=== PATIENT | female | born 1955 | race Caucasian/White ===

== ENCOUNTER → 2017-07-07 | Day surgery (SDC) | payer BC, OTHER ==
[~2017-07-07] MED LIST: Dextrose 5%-0.45% NaCl 1,000 ML IV SCH; Midazolam 1 MG/ML 2 ML SDV IV ONE; Midazolam 1 MG/ML 2 ML SDV ONE; Sodium Chloride 0.9% 10 ML Syringe FLUSH PRN; fentaNYL 100 MCG/2 ML SDV IV ONE; fentaNYL 100 MCG/2 ML SDV ONE
--- NOTE | 2017-07-07 18:20 | OR ---
DATE: 07/07/2017 PROCEDURE: Esophagogastroduodenoscopy and multiple pinch biopsies. INSTRUMENT USED: GIF-H180 Olympus video panendoscope. PREMEDICATIONS: No oral topical anesthesia used. Fentanyl 100 mcg intravenous, Versed 2 mg intravenous. Nasal O2 cannula. The procedure was done under pulse oximetry, BP recording, and questioned documents examiner. INDICATION: The patient on a long-term aspirin as well as PPI with persistent nausea and dyspepsia, unexplained. DESCRIPTION OF PROCEDURE: Esophagogastroduodenoscopy is performed for detection of any active erosive lesions. Garcia esophagus and/or malignancy also under consideration. H. pylori status to be determined, endoscopic hemostasis therapy if needed. The scope was passed with ease. Adequate visualization of the esophagus was made from proximal to distal areas. No upper esophageal lesions identified. No distal esophageal stricture. No uphill or downhill esophageal varices. No Gisel-Simental tear. No evidence of erosive esophagitis by Kegley criteria. No esophageal polyp or tumor mass identified. Z-line was seen at around 40 cm distal to the oral verge, configuration consistent with grade 1 by Zapp classification. No proximal gastric varices noted. Gastric fundus examination by retroflexion showed no malignant lesions. Diminutive multiple gastric fundus polyps were noted. No gastric ulcer, malignant mass, or vascular ectasia identified. Duodenal bulb showed no ulcer. Visualized second part of the duodenum was unremarkable. Multiple pinch biopsies were taken from the gastric antrum and proximal body and sent for PyloriTek test for H. pylori, and if negative in an hour, tissues to be sent for histopathology. No bleeding was noted from any of the visualized areas at the completion of examination. Photographs were taken of the duodenal bulb, gastric antrum, fundus, and distal esophagus. Scattered gastric antral erosions were noted without bleeding from them. IMPRESSION: 1. Diminutive gastric fundus polyp. 2. Gastric antral erosions. The patient tolerated the procedure well. [facility] /[id number]
== END ==
LOC: DL.ENDO 06:53
PROVIDERS: ATTEND Internal Medicine Gastroenterology
DX: Z12.11 Encounter for screening for malignant neoplasm of colon (principal); E66.09 Other obesity due to excess calories; I10 Essential (primary) hypertension; E11.9 Type 2 diabetes mellitus without complications; J45.909 Unspecified asthma, uncomplicated; E78.5 Hyperlipidemia, unspecified; K25.9 Gastric ulcer, unspecified as acute or chronic, without hemorrhage or perforation; K29.50 Unspecified chronic gastritis without bleeding; K63.5 Polyp of colon; Z88.1 Allergy status to other antibiotic agents; Z90.89 Acquired absence of other organs; Z98.890 Other specified postprocedural states; Z90.49 Acquired absence of other specified parts of digestive tract; Z88.8 Allergy status to other drugs, medicaments and biological substances
CPT/HCPCS: 43239; 87077; J2250; J3010; J7042

== ENCOUNTER 2020-07-02 14:45 | Emergency (ER) | payer MEDICARE, OTHER ==
[2020-07-02 15:03] VITALS: BP 159/68; PULSE 95
--- NOTE | 2020-07-02 16:33 | EDM.PDOC ---
Scribed by Mahi Forde 07/02/20 0006 for Emily Vazquez NP ED HPI GENERAL MEDICAL PROBLEM - General Chief Complaint: ENT Problem Stated Complaint: SINUS PROBLEMS ASTHMA Time Seen by Provider: 07/02/20 16:16 Source of Information: Reports: Patient, RN, RN Notes Reviewed History Limitations: Reports: No Limitations - History of Present Illness INITIAL COMMENTS - FREE TEXT/NARRATIVE: Patient is a 65-year-old female who presents to the ER with complaint of sinus infection and exacerbation of asthma. Her symptoms began on Thursday. She has a headache, face pain, cough--tickle/itch in right side, shortness of breath, fever, chills and diarrhea. No chest pain, nausea or vomiting. She was last tested in April at that time. No history of COVID unknown exposure. Onset: Gradual Duration: Getting Worse Location: Reports: Chest Quality: Reports: Ache Severity: Moderate Improves with: Reports: None Worsens with: Reports: None Associated Symptoms: Reports: No Other Symptoms Nose Pain Score (Numeric/FACES): 6 - Related Data Allergies Allergy/AdvReac Type Severity Reaction Status Date / Time clarithromycin [From Biaxin] Allergy Rash Verified 07/02/20 15:03 diltiazem HCl [From Cardizem] Allergy Rash Verified 07/02/20 15:03 fluticasone propionate Allergy Rash Verified 07/02/20 15:03 [From Advair Diskus] salmeterol xinafoate Allergy Rash Verified 07/02/20 15:03 [From Advair Diskus] Home Meds: Home Meds Cetirizine HCl [Zyrtec] 10 mg PO BEDTIME 05/26/15 [History] Hydrochlorothiazide 12.5 mg PO DAILY 05/26/15 [History] Losartan [Cozaar] 50 mg PO DAILY 05/26/15 [History] Montelukast [Singulair] 10 mg PO BEDTIME 05/26/15 [History] Pantoprazole [Protonix] 40 mg PO BID 05/26/15 [History] metFORMIN [Glucophage XR] 500 mg PO BID 05/26/15 [History] Albuterol Sulfate [Proair Hfa] 1 - 2 puff INH ASDIRECTED 07/06/17 [History] Flaxseed Oil [Flax Oil] 1,000 mg PO BID 07/06/17 [History] Lutein/Minerals/Vit A,C & E [I-Nguyễn] 1 tab PO DAILY 07/06/17 [History] Potassium Chloride 20 meq PO DAILY 07/06/17 [History] Simvastatin [Zocor] 20 mg PO DAILY 07/06/17 [History] Calcium Phosphate Trib/Vit D3 [Calcium-Vitamin D3 Gummies] 1 tab PO DAILY 06/22/18 [History] Magnesium Oxide 250 mg PO DAILY 06/22/18 [History] Past Medical History HEENT History: Reports: Impaired Vision Other HEENT History: wears glasses Cardiovascular History: Reports: Heart Murmur, High Cholesterol, Hypertension Respiratory History: Reports: Asthma Gastrointestinal History: Reports: Chronic Diarrhea, GERD Other Genitourinary History: Hematuria [employer] History: Reports: None Musculoskeletal History: Reports: Other (See Below) Other Musculoskeletal History: recurring left shoulder pain Neurological History: Reports: None Psychiatric History: Reports: None Endocrine/Metabolic History: Reports: Diabetes, Type II, Obesity/BMI 30+, Osteopenia Hematologic History: Reports: None Immunologic History: Reports: None Oncologic (Cancer) History: Reports: None Dermatologic History: Reports: None - Infectious Disease History Infectious Disease History: Reports: Chicken Pox, Measles - Past Surgical History Head Surgeries/Procedures: Reports: None HEENT Surgical History: Reports: Naso-Sinus Surgery, Tonsillectomy Other HEENT Surgeries/Procedures: Privious sinus surg Cardiovascular Surgical History: Reports: None Respiratory Surgical History: Reports: None GI Surgical History: Reports: Cholecystectomy, Colonoscopy, EGD Female Surgical History: Reports: None Endocrine Surgical History: Reports: None Neurological Surgical History: Reports: None Musculoskeletal Surgical History: Reports: None, Carpal Tunnel, Other (See Below) Other Musculoskeletal Surgeries/Procedures:: CARPAL TUNNEL RIGHT Oncologic Surgical History: Reports: None Dermatological Surgical History: Reports: None Social & Family History - Family History Family Medical History: No Pertinent Family History HEENT: Reports: Macular Degeneration Cardiac: Reports: Bypass, High Cholesterol, Hypertension, [place], Stent Respiratory: Reports: COPD GI: Reports: Diverticulitis : Reports: Pyelonephritis OBGYN: Reports: Neurological: Reports: None Psychiatric: Reports: None Endocrine/Metabolic: Reports: Diabetes, type II Hematologic: Reports: None Immunologic: Reports: None Dermatologic: Reports: None Oncologic: Reports: Breast, Other (See Below) Other Oncologic Family History: THROAT - Tobacco Use Tobacco Use Status *Q: Never Tobacco User Second Hand Smoke Exposure: No - Caffeine Use Caffeine Use: Reports: Coffee, Soda - Recreational Drug Use Recreational Drug Use: No - Living Situation & Occupation Living situation: Reports: , with Spouse Occupation: Unemployed ED ROS ENT - Review of Systems Review Of Systems: Comprehensive ROS is negative, except as noted in HPI. ED EXAM, ENT - Physical Exam Exam: See Below Exam Limited By: No Limitations General Appearance: Alert, WD/WN, No Apparent Distress Eye Exam: Bilateral Eye: EOMI, Normal Inspection, PERRL Ears: Normal External Exam, Normal Canal, Hearing Grossly Normal, Normal TMs Nose: Normal Inspection Mouth/Throat: Normal Inspection Head: Facial Tenderness (frontal and maxillary) Neck: Normal Inspection, Supple, Non-Tender, Full Range of Motion Respiratory/Chest: No Respiratory Distress, Lungs Clear, Normal Breath Sounds, No Accessory Muscle Use, Chest Non-Tender GI/Abdominal: Normal Bowel Sounds, Soft, Non-Tender, No Organomegaly, No Distention, No Abnormal Bruit, No Mass (Female) Exam: Deferred Rectal (Female) Exam: Deferred Back: Normal Inspection, Full Range of Motion Extremities: Normal Inspection, Normal Range of Motion, Non-Tender, No Pedal Edema, Normal Capillary Refill Neurological: Alert, Oriented, CN II-XII Intact, Normal Cognition, Normal Gait, Normal Reflexes, No Motor/Sensory Deficits Psychiatric: Normal Affect, Normal Mood Skin: Warm, Dry, Intact, Normal Color, No Rash Lymphatic: No Adenopathy Course - Vital Signs Last Recorded V/S: Last Vital Signs Temp 99.2 F 07/02/20 14:57 Pulse 95 07/02/20 14:57 Resp 18 07/02/20 14:57 BP 159/68 H 07/02/20 14:57 Pulse Ox 97 07/02/20 14:57 Departure - Departure Time of Disposition: 16:27 Disposition: Home, Self-Care 01 Condition: Good Clinical Impression: Sinusitis Qualifiers: Sinusitis location: unspecified location Chronicity: acute Recurrence: not specified as recurrent Qualified Code(s): J01.90 - Acute sinusitis, unspecified - Discharge Information *PRESCRIPTION DRUG MONITORING PROGRAM REVIEWED*: No *COPY OF PRESCRIPTION DRUG MONITORING REPORT IN PATIENT CLAY: No Instructions: COVID-19 Frequently Asked Questions, Antibiotic Medicine, Adult, [id number], Sinusitis, Adult, [id number], COVID-19: How to Protect Yourself and Others - CDC, Prevent the Spread of COVID-19 if You Are Sick - CDC, Probiotics Forms: ED Department Discharge Additional Instructions: You will be contacted with the results of your Covid testing Isolate/quarantine until you have these results and are given further instruction Rx: Prednisone, Augmentin May use Tylenol and/or ibuprofen as directed or tolerated for fever/pain Follow-up with your primary care provider if no improvement in the clinic Sepsis Event Note (ED) - Evaluation Sepsis Screening Result: Possible Sepsis Risk - Focused Exam Vital Signs: Vital Signs Temp Pulse Resp BP Pulse Ox 07/02/20 14:57 99.2 F 95 18 159/68 H 97 I have read and agree with the documentation that has been completed regarding this visit. By signing this record, I attest that the documentation was completed in my physical presence and is an accurate record of the encounter.
== END 2020-07-02 16:41 | disposition home or self-care (01) ==
LOC: DL.ED 14:45
DX: J01.90 Acute sinusitis, unspecified (principal); E11.9 Type 2 diabetes mellitus without complications; E66.9 Obesity, unspecified; K21.9 Gastro-esophageal reflux disease without esophagitis; I10 Essential (primary) hypertension; E78.00 Pure hypercholesterolemia, unspecified; J45.909 Unspecified asthma, uncomplicated; Z68.35 Body mass index [BMI] 35.0-35.9, adult; Z79.84 Long term (current) use of oral hypoglycemic drugs; Z88.1 Allergy status to other antibiotic agents; Z88.8 Allergy status to other drugs, medicaments and biological substances; Z90.49 Acquired absence of other specified parts of digestive tract; Z79.899 Other long term (current) drug therapy
CPT/HCPCS: 99283; U0002

== ENCOUNTER 2020-07-05 16:20 | Emergency (ER) | payer MEDICARE, OTHER ==
[2020-07-05] MEDS ORDERED: Albuterol/Ipratropium 3.0-0.5 MG/3 ML Neb Soln INH ONE (16:21)
[2020-07-05 16:41] VITALS: BP 117/59; PULSE 84
--- NOTE | 2020-07-05 17:54 | EDM.PDOC ---
<Barrera Lee Mary - Last Filed: 07/05/20 18:48> ED HPI GENERAL MEDICAL PROBLEM - General Chief Complaint: General Stated Complaint: COVID + CANT BREATH Time Seen by Provider: 07/05/20 17:40 Source of Information: Reports: Patient History Limitations: Reports: No Limitations - History of Present Illness INITIAL COMMENTS - FREE TEXT/NARRATIVE: This 65 yo female patient reports to the ED due to increased shortness of breath with a positive COVID test on 07/02/20. The patient reports she has been having a cough which increases her shortness of breath. The patient has a history of asthma, has been using her inhaler, but continues to have a cough with shortness of breath. The patient is currently on Augmentin and Prednisone, but reports she is not getting better. The patient reports she called her primary care facility and was advised to come to the ED for assessment and treatment. Duration: Day(s):, Constant Location: Reports: Chest (right sided) Quality: Reports: Ache, Dull Severity: Moderate Improves with: Reports: None Worsens with: Reports: Other (cough) Context: Reports: Other Associated Symptoms: Reports: Chest Pain (right sided), Shortness of Breath Generalized Pain Score (Numeric/FACES): 5 - Related Data Allergies Allergy/AdvReac Type Severity Reaction Status Date / Time clarithromycin [From Biaxin] Allergy Rash Verified 07/05/20 16:36 diltiazem HCl [From Cardizem] Allergy Rash Verified 07/05/20 16:36 fluticasone propionate Allergy Rash Verified 07/05/20 16:36 [From Advair Diskus] salmeterol xinafoate Allergy Rash Verified 07/05/20 16:36 [From Advair Diskus] Home Meds: Home Meds Cetirizine HCl [Zyrtec] 10 mg PO BEDTIME 05/26/15 [History] Hydrochlorothiazide 12.5 mg PO DAILY 05/26/15 [History] Losartan [Cozaar] 50 mg PO DAILY 05/26/15 [History] Montelukast [Singulair] 10 mg PO BEDTIME 05/26/15 [History] Pantoprazole [Protonix] 40 mg PO BID 05/26/15 [History] metFORMIN [Glucophage XR] 500 mg PO BID 05/26/15 [History] Albuterol Sulfate [Proair Hfa] 1 - 2 puff INH ASDIRECTED 07/06/17 [History] Flaxseed Oil [Flax Oil] 1,000 mg PO BID 07/06/17 [History] Lutein/Minerals/Vit A,C & E [I-Nguyễn] 1 tab PO DAILY 07/06/17 [History] Potassium Chloride 20 meq PO DAILY 07/06/17 [History] Simvastatin [Zocor] 20 mg PO DAILY 07/06/17 [History] Calcium Phosphate Trib/Vit D3 [Calcium-Vitamin D3 Gummies] 1 tab PO DAILY 06/22/18 [History] Magnesium Oxide 250 mg PO DAILY 06/22/18 [History] Past Medical History HEENT History: Reports: Impaired Vision Other HEENT History: wears glasses Cardiovascular History: Reports: Heart Murmur, High Cholesterol, Hypertension Respiratory History: Reports: Asthma Gastrointestinal History: Reports: Chronic Diarrhea, GERD Genitourinary History: Reports: Other (See Below) Other Genitourinary History: Hematuria [employer] History: Reports: None Musculoskeletal History: Reports: Other (See Below) Other Musculoskeletal History: recurring left shoulder pain Neurological History: Reports: None Psychiatric History: Reports: None Endocrine/Metabolic History: Reports: Diabetes, Type II, Obesity/BMI 30+, Osteopenia Hematologic History: Reports: None Immunologic History: Reports: None Oncologic (Cancer) History: Reports: None Dermatologic History: Reports: None - Infectious Disease History Infectious Disease History: Reports: Chicken Pox, Measles - Past Surgical History Head Surgeries/Procedures: Reports: None HEENT Surgical History: Reports: Naso-Sinus Surgery, Tonsillectomy Other HEENT Surgeries/Procedures: Privious sinus surg Cardiovascular Surgical History: Reports: None Respiratory Surgical History: Reports: None GI Surgical History: Reports: Cholecystectomy, Colonoscopy, EGD Female Surgical History: Reports: None Endocrine Surgical History: Reports: None Neurological Surgical History: Reports: None Musculoskeletal Surgical History: Reports: None, Carpal Tunnel, Other (See Below) Other Musculoskeletal Surgeries/Procedures:: CARPAL TUNNEL RIGHT Oncologic Surgical History: Reports: None Dermatological Surgical History: Reports: None Social & Family History - Family History Family Medical History: No Pertinent Family History HEENT: Reports: Macular Degeneration Cardiac: Reports: Bypass, High Cholesterol, Hypertension, [place], Stent Respiratory: Reports: COPD GI: Reports: Diverticulitis : Reports: Pyelonephritis OBGYN: Reports: Neurological: Reports: None Psychiatric: Reports: None Endocrine/Metabolic: Reports: Diabetes, type II Hematologic: Reports: None Immunologic: Reports: None Dermatologic: Reports: None Oncologic: Reports: Breast, Other (See Below) Other Oncologic Family History: THROAT - Caffeine Use Caffeine Use: Reports: None - Recreational Drug Use Recreational Drug Use: No - Living Situation & Occupation Living situation: Reports: , with Spouse Occupation: Unemployed ED ROS GENERAL - Review of Systems Review Of Systems: Comprehensive ROS is negative, except as noted in HPI. ED EXAM, GENERAL - Physical Exam Exam: See Below Exam Limited By: No Limitations General Appearance: Alert, WD/WN, Moderate Distress Eye Exam: Bilateral Eye: EOMI, Normal Inspection, PERRL Ears: Normal External Exam, Normal Canal, Hearing Grossly Normal, Normal TMs Nose: Normal Inspection, Normal Mucosa, No Blood Throat/Mouth: Normal Inspection, Normal Lips, Normal Teeth, Normal Gums, Normal Oropharynx, Normal Voice, No Airway Compromise Head: Atraumatic, Normocephalic Neck: Normal Inspection, Supple, Non-Tender, Full Range of Motion Respiratory/Chest: Decreased Breath Sounds, Rhonchi (diffuse) Cardiovascular: Normal Peripheral Pulses, Regular Rate, Rhythm, No Edema, No Gallop, No JVD, No Murmur, No Rub GI/Abdominal: Normal Bowel Sounds, Soft, Non-Tender, No Organomegaly, No Distention, No Abnormal Bruit, No Mass (Female) Exam: Deferred Rectal (Female) Exam: Deferred Back Exam: Normal Inspection, Full Range of Motion, NT Extremities: Normal Inspection, Normal Range of Motion, Non-Tender, Normal Capillary Refill, No Pedal Edema Neurological: Alert, Oriented, CN II-XII Intact, Normal Cognition, Normal Gait, Normal Reflexes, No Motor/Sensory Deficits Psychiatric: Normal Affect, Normal Mood Skin Exam: Warm, Dry, Intact, Normal Color, No Rash Lymphatic: No Adenopathy Departure - Departure Disposition: Home, Self-Care 01 Clinical Impression: Acute bronchitis due to COVID-19 virus - Discharge Information Instructions: COVID-19 Frequently Asked Questions Forms: ED Department Discharge Additional Instructions: 1) don't sleep flat at night 2) use humidifier in bedroom 3) drink lots of liquids 4) take tylenl or motrin for discomfort 5) follow up at clinic rx given; nahun pearle 100mg bid prn cough x 12 duoneb tid prn x 1 box Sepsis Event Note (ED) - Evaluation Sepsis Screening Result: No Definite Risk <Chuck Hernandez - Last Filed: 07/05/20 19:39> Course - Vital Signs Last Recorded V/S: Last Vital Signs Temp 35.6 C L 07/05/20 16:37 Pulse 84 07/05/20 16:37 Resp 18 07/05/20 16:37 BP 117/59 L 07/05/20 16:37 Pulse Ox 98 07/05/20 16:37 - Orders/Labs/Meds Labs: Laboratory Tests 07/05/20 07/05/20 07/05/20 Range/Units 18:33 18:33 18:33 WBC 7.4 (5.0-10.0) 10^3/uL RBC 4.62 (4.2-5.4) 10^6/uL Hgb 13.0 (12.0-16.0) g/dL Hct 40.3 (37.0-47.0) % MCV 87.2 (80-100) fL MCH 28.1 (27.0-34.0) pg MCHC 32.3 L (33.0-35.0) g/dL Plt Count 194 (150-450) 10^3/uL Neut % (Auto) 86.0 H (42.2-75.2) % Lymph % (Auto) 7.7 L (20.5-50.1) % [place] % (Auto) 5.9 (2-8) % Eos % (Auto) 0.1 L (1.0-3.0) % Baso % (Auto) 0.3 (0.0-1.0) % D-Dimer, Quantitative < 100 (0-400) ng/mL Sodium 134 L (136-145) mmol/L Potassium 3.9 (3.5-5.1) mmol/L Chloride 98 (98-107) mmol/L Carbon Dioxide 28 (21-32) mmol/L Anion Gap 11.9 (7-13) mEq/L BUN 14 (7-18) mg/dL Creatinine 1.10 H (0.55-1.02) mg/dL Est Cr Clr Drug Dosing 37.45 mL/min Estimated GFR (MDRD) 50 BUN/Creatinine Ratio 12.7 (No establ ref range) Glucose 194 H (74-99) mg/dL Calcium 9.4 (8.5-10.1) mg/dL Total Bilirubin 0.3 (0.2-1.0) mg/dL AST 25 (15-37) U/L ALT 41 (14-59) U/L Alkaline Phosphatase 58 (46-116) U/L Total Protein 7.9 (6.4-8.2) g/dL Albumin 3.8 (3.4-5.0) g/dL Globulin 4.1 Albumin/Globulin Ratio 0.9 Meds: Medications Discontinued Medications Generic Name Dose Route Start Last Admin Trade Name Freq PRN Reason Stop Dose Admin Benzonatate 100 mg 07/05/20 19:32 Tessalon Perles PO 07/05/20 19:33 ONETIME ONE - Re-Assessments/Exams Free Text/Narrative Re-Assessment/Exam: 07/05/20 19:36 results discussed with pt. Departure - Departure Time of Disposition: 19:37 Condition: Good Sepsis Event Note (ED) - Focused Exam Vital Signs: Vital Signs Temp Pulse Resp BP Pulse Ox 07/05/20 16:37 35.6 C L 84 18 117/59 L 98
[2020-07-05 19:05] LABS: ANION GAP 11.9 mEq/L (7-13)
[2020-07-05] MEDS ORDERED: Benzonatate 100 MG Cap PO ONE (19:32)
[2020-07-05] MEDS ORDERED: Albuterol/Ipratropium 3.0-0.5 MG/3 ML Neb Soln ONE (19:36)
== END 2020-07-05 19:45 | disposition home or self-care (01) ==
LOC: DL.ED 16:20
DX: U07.1 COVID-19 (principal); J20.9 Acute bronchitis, unspecified; E78.00 Pure hypercholesterolemia, unspecified; I10 Essential (primary) hypertension; K21.9 Gastro-esophageal reflux disease without esophagitis; E11.9 Type 2 diabetes mellitus without complications; E66.9 Obesity, unspecified; Z68.34 Body mass index [BMI] 34.0-34.9, adult; Z88.1 Allergy status to other antibiotic agents; Z88.8 Allergy status to other drugs, medicaments and biological substances; Z79.84 Long term (current) use of oral hypoglycemic drugs; Z79.899 Other long term (current) drug therapy
CPT/HCPCS: 36415; 80053; 85025; 85379; 99283; A9270-GY; J7620-GY

== ENCOUNTER 2020-07-10 22:48 | Inpatient (IN) | payer MEDICARE, OTHER ==
[2020-07-11 00:59] LABS: CHLORIDE,CL 97 mmol/L (98-107); SODIUM,NA 135 mmol/L (136-145)
[2020-07-11] MEDS ORDERED: Dexamethasone 4 MG/ML SDV IVPUSH ONE (01:19)
--- NOTE | 2020-07-11 01:58 | CT ---
PROCEDURE INFORMATION: Exam: CT Chest Without Contrast; Diagnostic Exam date and time: 07/11/2020 1:00 AM Age: 65 years old Clinical indication: Other: Covid +; Additional info: Covid + TECHNIQUE: Imaging protocol: Diagnostic computed tomography of the chest without contrast. Radiation optimization: All CT scans at this facility use at least one of these dose optimization techniques: automated exposure control; mA and/or kV adjustment per patient size (includes targeted exams where dose is matched to clinical indication); or iterative reconstruction. COMPARISON: No relevant prior studies available. FINDINGS: Lungs: Extensive bilateral patchy areas of ground-glass opacification.Commonly reported imaging features of COVID-19 pneumonia are present. Other processes such as influenza pneumonia and organizing pneumonia, as can be seen with drug toxicity and connective tissue disease, can cause a similar imaging pattern. (Reference: Joe) Pleural space: Unremarkable. No pneumothorax. No pleural effusion. Heart: Unremarkable. No cardiomegaly. No pericardial effusion. Aorta: Unremarkable. No aortic aneurysm. Lymph nodes: Unremarkable. No enlarged lymph nodes. Gallbladder and bile ducts: The patient is status post cholecystectomy. Bones/joints: Unremarkable. No acute fracture. Soft tissues: Unremarkable. IMPRESSION: Extensive bilateral patchy areas of consolidation, consistent with COVID-19 pneumonia. REFERENCES: Joe Morin et al., [employer] Society [place] Expert Consensus Statement on Reporting Chest CT Findings Related to COVID-19. Endorsed by the Society of [employer] Radiology, the [place] [employer], and RSNA. Published October 12, 2019.
[2020-07-11] MEDS ORDERED: Ondansetron 4 MG/2 ML SDV IVPUSH PRN (03:48)
--- NOTE | 2020-07-11 03:56 | PCM.HP ---
H&P History of Present Illness - General Date of Service: 07/11/20 Admit Problem/Dx: Admission Diagnosis/Problem Admission Diagnosis/Problem Bilateral pneumonia Source of Information: Patient - History of Present Illness Initial Comments - Free Text/Narative: Is a 65-year-old female with medical history of hypertension, diabetes mellitus, gastroesophageal reflux disease. The patient presented to the emergency room with complaint of shortness of breath. She was diagnosed with Covid on 07/02/2020. She has continued to cough and the shortness of breath is getting worse. At presentation she was hypoxic saturation down to 70%. She was placed on supplemental oxygen 4 L/min. CT scan of the chest showed findings consistent with Covid pneumonia - Related Data Allergies/Adverse Reactions: Allergies Allergy/AdvReac Type Severity Reaction Status Date / Time clarithromycin [From Biaxin] Allergy Rash Verified 07/05/20 16:36 diltiazem HCl [From Cardizem] Allergy Rash Verified 07/05/20 16:36 fluticasone propionate Allergy Rash Verified 07/05/20 16:36 [From Advair Diskus] salmeterol xinafoate Allergy Rash Verified 07/05/20 16:36 [From Advair Diskus] Home Medications: Home Meds Cetirizine HCl [Zyrtec] 10 mg PO BEDTIME 05/26/15 [History] Hydrochlorothiazide 12.5 mg PO DAILY 05/26/15 [History] Losartan [Cozaar] 50 mg PO DAILY 05/26/15 [History] Montelukast [Singulair] 10 mg PO BEDTIME 05/26/15 [History] Pantoprazole [Protonix] 40 mg PO BID 05/26/15 [History] metFORMIN [Glucophage XR] 500 mg PO BID 05/26/15 [History] Albuterol Sulfate [Proair Hfa] 1 - 2 puff INH ASDIRECTED 07/06/17 [History] Flaxseed Oil [Flax Oil] 1,000 mg PO BID 07/06/17 [History] Lutein/Minerals/Vit A,C & E [I-Nguyễn] 1 tab PO DAILY 07/06/17 [History] Potassium Chloride 20 meq PO DAILY 07/06/17 [History] Simvastatin [Zocor] 20 mg PO DAILY 07/06/17 [History] Calcium Phosphate Trib/Vit D3 [Calcium-Vitamin D3 Gummies] 1 tab PO DAILY 06/22/18 [History] Magnesium Oxide 250 mg PO DAILY 06/22/18 [History] Past Medical History HEENT History: Reports: Impaired Vision Other HEENT History: wears glasses Cardiovascular History: Reports: Heart Murmur, High Cholesterol, Hypertension Respiratory History: Reports: Asthma Gastrointestinal History: Reports: Chronic Diarrhea, GERD Genitourinary History: Reports: Other (See Below) Other Genitourinary History: Hematuria STRIPER History: Reports: None Musculoskeletal History: Reports: Other (See Below) Other Musculoskeletal History: recurring left shoulder pain Neurological History: Reports: None Psychiatric History: Reports: None Endocrine/Metabolic History: Reports: Diabetes, Type II, Obesity/BMI 30+, Osteopenia Hematologic History: Reports: None Immunologic History: Reports: None Oncologic (Cancer) History: Reports: None Dermatologic History: Reports: None - Infectious Disease History Infectious Disease History: Reports: Chicken Pox, Measles - Past Surgical History Head Surgeries/Procedures: Reports: None HEENT Surgical History: Reports: Naso-Sinus Surgery, Tonsillectomy Other HEENT Surgeries/Procedures: Privious sinus surg Cardiovascular Surgical History: Reports: None Respiratory Surgical History: Reports: None GI Surgical History: Reports: Cholecystectomy, Colonoscopy, EGD Female Surgical History: Reports: None Endocrine Surgical History: Reports: None Neurological Surgical History: Reports: None Musculoskeletal Surgical History: Reports: None, Carpal Tunnel, Other (See Below) Other Musculoskeletal Surgeries/Procedures:: CARPAL TUNNEL RIGHT Oncologic Surgical History: Reports: None Dermatological Surgical History: Reports: None Social & Family History - Family History Family Medical History: No Pertinent Family History HEENT: Reports: Macular Degeneration Cardiac: Reports: Bypass, High Cholesterol, Hypertension, [place], Stent Respiratory: Reports: COPD GI: Reports: Diverticulitis : Reports: Pyelonephritis OBGYN: Reports: Neurological: Reports: None Psychiatric: Reports: None Endocrine/Metabolic: Reports: Diabetes, type II Hematologic: Reports: None Immunologic: Reports: None Dermatologic: Reports: None Oncologic: Reports: Breast, Other (See Below) Other Oncologic Family History: THROAT - Caffeine Use Caffeine Use: Reports: None - Living Situation & Occupation Living situation: Reports: , with Spouse Occupation: Unemployed H&P Review of Systems - Review of Systems: Review Of Systems: See Below General: Reports: Chills, Malaise, Fatigue Pulmonary: Reports: Shortness of Breath, Cough, Sputum Cardiovascular: Reports: No Symptoms Gastrointestinal: Reports: Abdominal Pain, Diarrhea, Nausea Musculoskeletal: Reports: No Symptoms Exam - Exam Exam: See Below - Vital Signs Vital Signs: Last Vital Signs Temp 37.0 C 07/11/20 03:05 Pulse 105 H 07/11/20 03:05 Resp 22 H 07/11/20 03:05 BP 121/95 H 07/11/20 03:05 Pulse Ox 97 07/11/20 03:05 Weight: 81.221 kg - Exam Quality Assessment: Supplemental Oxygen General: Alert, Oriented Neck: Supple, Trachea Midline, 2 Lungs: Decreased Breath Sounds Cardiovascular: Regular Rate, Regular Rhythm GI/Abdominal Exam: Normal Bowel Sounds, Soft, Non-Tender, No Organomegaly, No Distention, No Abnormal Bruit, No Mass, Pelvis Stable Extremities: Normal Inspection, Normal Range of Motion, Non-Tender, No Pedal E adrian, Normal Capillary Refill - Patient Data Lab Results Last 24 hrs: Laboratory Results - last 24 hr 07/11/20 07/11/20 07/11/20 Range/Units 00:30 00:30 00:30 WBC 7.7 (5.0-10.0) 10^3/uL RBC 4.16 L (4.2-5.4) 10^6/uL Hgb 11.8 L (12.0-16.0) g/dL Hct 35.6 L (37.0-47.0) % MCV 85.6 (80-100) fL MCH 28.4 (27.0-34.0) pg MCHC 33.1 (33.0-35.0) g/dL Plt Count 197 (150-450) 10^3/uL Neut % (Auto) 81.3 H (42.2-75.2) % Lymph % (Auto) 11.4 L (20.5-50.1) % [place] % (Auto) 7.1 (2-8) % Eos % (Auto) 0.1 L (1.0-3.0) % Baso % (Auto) 0.1 (0.0-1.0) % D-Dimer, Quantitative 521 H (0-400) ng/mL Sodium 135 L (136-145) mmol/L Potassium 3.0 L (3.5-5.1) mmol/L Chloride 97 L (98-107) mmol/L Carbon Dioxide 32 (21-32) mmol/L Anion Gap 9.0 (7-13) mEq/L BUN 13 (7-18) mg/dL Creatinine 0.93 (0.55-1.02) mg/dL Est Cr Clr Drug Dosing TNP Estimated GFR (MDRD) > 60 BUN/Creatinine Ratio 14.0 (No establ ref range) Glucose 112 H (74-99) mg/dL Lactic Acid (0.4-2.0) mmol/L Calcium 8.3 L (8.5-10.1) mg/dL Total Bilirubin 0.4 (0.2-1.0) mg/dL AST 32 (15-37) U/L ALT 24 (14-59) U/L Alkaline Phosphatase 44 L (46-116) U/L Troponin I < 0.017 (0.000-0.056) ng/mL Total Protein 6.9 (6.4-8.2) g/dL Albumin 2.7 L (3.4-5.0) g/dL Globulin 4.2 Albumin/Globulin Ratio 0.64 Amylase 33 (25-115) U/L Lipase 109 (73-393) U/L 12/23/20 Range/Units 00:30 WBC (5.0-10.0) 10^3/uL RBC (4.2-5.4) 10^6/uL Hgb (12.0-16.0) g/dL Hct (37.0-47.0) % MCV (80-100) fL MCH (27.0-34.0) pg MCHC (33.0-35.0) g/dL Plt Count (150-450) 10^3/uL Neut % (Auto) (42.2-75.2) % Lymph % (Auto) (20.5-50.1) % [place] % (Auto) (2-8) % Eos % (Auto) (1.0-3.0) % Baso % (Auto) (0.0-1.0) % D-Dimer, Quantitative (0-400) ng/mL Sodium (136-145) mmol/L Potassium (3.5-5.1) mmol/L Chloride (98-107) mmol/L Carbon Dioxide (21-32) mmol/L Anion Gap (7-13) mEq/L BUN (7-18) mg/dL Creatinine (0.55-1.02) mg/dL Est Cr Clr Drug Dosing Estimated GFR (MDRD) BUN/Creatinine Ratio (No establ ref range) Glucose (74-99) mg/dL Lactic Acid 0.8 (0.4-2.0) mmol/L Calcium (8.5-10.1) mg/dL Total Bilirubin (0.2-1.0) mg/dL AST (15-37) U/L ALT (14-59) U/L Alkaline Phosphatase (46-116) U/L Troponin I (0.000-0.056) ng/mL Total Protein (6.4-8.2) g/dL Albumin (3.4-5.0) g/dL Globulin Albumin/Globulin Ratio Amylase (25-115) U/L Lipase (73-393) U/L Result Diagrams: 07/11/20 00:30 07/11/20 00:30 [place] Results Last 24 hrs: Microbiology 07/11/20 00:30 Anaerobic Blood Culture - Final Blood - Arm, Left Problem List Initiated/Reviewed/Updated: Yes Orders Last 24hrs: Active Orders 24 hr Category Date Time Status Admission Diagnosis [ADT] Routine ADT 07/11/20 02:18 Ordered Admission Status [Patient Status] [ADT] Routine ADT 07/11/20 02:18 Active Patient Status [ADT] Routine ADT 07/11/20 03:48 Ordered Cardiac Monitoring [RC] CONTINUOUS Care 07/11/20 03:50 Ordered Intake and Output [RC] QSHIFT Care 07/11/20 03:50 Ordered Oxygen Therapy [RC] PRN Care 07/11/20 03:48 Ordered Up ad Leeann [RC] ASDIRECTED Care 07/11/20 03:48 Ordered VTE/DVT Education [RC] PER UNIT ROUTINE Care 07/11/20 03:48 Ordered Vital Signs [RC] Q4H Care 07/11/20 03:48 Ordered Regular Diet [DIET] Diet 07/11/20 Breakfast Ordered BASIC METABOLIC PANEL,BMP [CHEM] AM Lab 07/11/20 05:11 Ordered CULTURE BLOOD [BC] Stat Lab 07/11/20 00:30 Results HEPATIC FUNCTION PANEL,HFP [CHEM] AM Lab 07/11/20 05:11 Ordered TROPONIN I [CHEM] AM Lab 07/11/20 05:11 Ordered Acetaminophen [TylenoL] Med 07/11/20 03:48 Ordered 650 mg PO Q4H PRN Enoxaparin [Lovenox] Med 07/11/20 09:00 Ordered 30 mg SUBCUT Q12HR Ondansetron [Zofran] Med 07/11/20 03:48 Ordered 4 mg IVPUSH Q6H PRN Sodium Chloride 0.9% [Normal Saline] 1,000 ml Med 07/11/20 04:00 Ordered IV ASDIRECTED dexAMETHasone [Decadron] Med 07/12/20 04:00 Ordered 6 mg IVPUSH Q24H Blood Culture x2 Reflex Set [OM.PC] Stat Oth 07/11/20 02:29 Ordered Resuscitation Status Routine Resus Stat 07/11/20 03:48 Ordered Assessment/Plan Comment:: Assessment/plan: #. COVID-[address] scan demonstrated bilateral pulmonary infiltrate #. Acute hypoxemic respiratory failure Secondary to COVID-19 pneumonia #. Diabetes mellitus type 2 On oral hypoglycemic agents #. Hypokalemia Serum potassium is down to 3.0 Likely due to hydrochlorothiazide #. Hypertension On hydrochlorothiazide and losartan Plan: Admit patient to medical floor Start patient on dexamethasone Patient is outside the window for intravenous remdesivir Also outside window for intravenous convalescent plasma Start patient on Lovenox Monitor blood sugar before meals and at bedtime Consistent carbohydrate diet Replace potassium deficit.
[2020-07-11] MEDS: Sodium Chloride 0.9% 1,000 ML IV SCH ×2 (04:40→17:57)
[2020-07-11] MEDS ORDERED: Potassium Chloride 20 MEQ in Premix Bag 1 BAG IV ONE (04:58)
[2020-07-11 06:50] LABS: ANION GAP 13.7 mEq/L (7-13); CHLORIDE,CL 97 mmol/L (98-107); SODIUM,NA 136 mmol/L (136-145)
[2020-07-11] MEDS: Enoxaparin 30 MG/0.3 ML Syringe SUBCUT SCH ×2 (09:12→20:57)
--- NOTE | 2020-07-11 11:36 | PCM.PN ---
- General Info Date of Service: 07/11/20 Admission Dx/Problem (Free Text): Admission Diagnosis/Problem Admission Diagnosis/Problem Bilateral pneumonia Subjective Update: Pt was seen in room doing well, No nausea or Vomiting and she is still on supplemental oxygen, her appetite is good Functional Status: Reports: Pain Controlled, Tolerating Diet, Ambulating, Urinating - Review of Systems General: Reports: Weakness, Appetite (accptable). Denies: Fever, Chills HEENT: Denies: Headaches, Sinus Congestion, Sore Throat Pulmonary: Reports: Shortness of Breath, Cough. Denies: Sputum, Wheezing Cardiovascular: Denies: Chest Pain, Dyspnea on Exertion, Lightheadedness Gastrointestinal: Denies: Abdominal Pain, Difficulty Swallowing, Nausea, Vomiting Genitourinary: Denies: Dysuria, Frequency, Flank Pain Musculoskeletal: Denies: Neck Pain, Shoulder Pain, Leg Pain Skin: Denies: Cyanosis, Bruising, Pruritis, Rash Neurological: Reports: Weakness. Denies: Confusion, Tingling, Tremors, Difficulty Walking Psychiatric: Denies: Confusion, Anxiety, Agitation - Patient Data Vitals - Most Recent: Last Vital Signs Temp 37.1 C 07/11/20 08:00 Pulse 73 07/11/20 08:00 Resp 18 07/11/20 08:00 BP 104/60 07/11/20 08:00 Pulse Ox 95 07/11/20 08:00 Weight - Most Recent: 81.221 kg I&O - Last 24 Hours: Intake & Output 07/10/20 07/11/20 07/11/20 22:59 06:59 14:59 Intake Total 200 Output Total 100 Balance -100 200 Lab Results Last 24 Hours: Laboratory Results - last 24 hr 07/11/20 07/11/20 07/11/20 Range/Units 00:30 00:30 00:30 WBC 7.7 (5.0-10.0) 10^3/uL RBC 4.16 L (4.2-5.4) 10^6/uL Hgb 11.8 L (12.0-16.0) g/dL Hct 35.6 L (37.0-47.0) % MCV 85.6 (80-100) fL MCH 28.4 (27.0-34.0) pg MCHC 33.1 (33.0-35.0) g/dL Plt Count 197 (150-450) 10^3/uL Neut % (Auto) 81.3 H (42.2-75.2) % Lymph % (Auto) 11.4 L (20.5-50.1) % [place] % (Auto) 7.1 (2-8) % Eos % (Auto) 0.1 L (1.0-3.0) % Baso % (Auto) 0.1 (0.0-1.0) % D-Dimer, Quantitative 521 H (0-400) ng/mL Sodium 135 L (136-145) mmol/L Potassium 3.0 L (3.5-5.1) mmol/L Chloride 97 L (98-107) mmol/L Carbon Dioxide 32 (21-32) mmol/L Anion Gap 9.0 (7-13) mEq/L BUN 13 (7-18) mg/dL Creatinine 0.93 (0.55-1.02) mg/dL Est Cr Clr Drug Dosing TNP Estimated GFR (MDRD) > 60 BUN/Creatinine Ratio 14.0 (No establ ref range) Glucose 112 H (74-99) mg/dL POC Glucose (70-105) mg/dl Lactic Acid (0.4-2.0) mmol/L Calcium 8.3 L (8.5-10.1) mg/dL Total Bilirubin 0.4 (0.2-1.0) mg/dL Direct Bilirubin (0.0-0.2) mg/dL Indirect Bilirubin AST 32 (15-37) U/L ALT 24 (14-59) U/L Alkaline Phosphatase 44 L (46-116) U/L Troponin I < 0.017 (0.000-0.056) ng/mL Total Protein 6.9 (6.4-8.2) g/dL Albumin 2.7 L (3.4-5.0) g/dL Globulin 4.2 Albumin/Globulin Ratio 0.64 Amylase 33 (25-115) U/L Lipase 109 (73-393) U/L 07/11/20 07/11/20 07/11/20 Range/Units 00:30 06:15 07:38 WBC (5.0-10.0) 10^3/uL RBC (4.2-5.4) 10^6/uL Hgb (12.0-16.0) g/dL Hct (37.0-47.0) % MCV (80-100) fL MCH (27.0-34.0) pg MCHC (33.0-35.0) g/dL Plt Count (150-450) 10^3/uL Neut % (Auto) (42.2-75.2) % Lymph % (Auto) (20.5-50.1) % [place] % (Auto) (2-8) % Eos % (Auto) (1.0-3.0) % Baso % (Auto) (0.0-1.0) % D-Dimer, Quantitative (0-400) ng/mL Sodium 136 (136-145) mmol/L Potassium 3.7 (3.5-5.1) mmol/L Chloride 97 L (98-107) mmol/L Carbon Dioxide 29 (21-32) mmol/L Anion Gap 13.7 H (7-13) mEq/L BUN 12 (7-18) mg/dL Creatinine 0.89 (0.55-1.02) mg/dL Est Cr Clr Drug Dosing 46.29 Estimated GFR (MDRD) > 60 BUN/Creatinine Ratio (No establ ref range) Glucose 144 H (74-99) mg/dL POC Glucose 139 H (70-105) mg/dl Lactic Acid 0.8 (0.4-2.0) mmol/L Calcium 8.1 L (8.5-10.1) mg/dL Total Bilirubin 0.4 (0.2-1.0) mg/dL Direct Bilirubin 0.2 (0.0-0.2) mg/dL Indirect Bilirubin 0.2 AST 32 (15-37) U/L ALT 23 (14-59) U/L Alkaline Phosphatase 41 L (46-116) U/L Troponin I < 0.017 (0.000-0.056) ng/mL Total Protein 6.9 (6.4-8.2) g/dL Albumin 2.6 L (3.4-5.0) g/dL Globulin 4.3 Albumin/Globulin Ratio 0.60 Amylase (25-115) U/L Lipase (73-393) U/L [place] Results Last 24 Hours: Microbiology 07/11/20 00:30 Anaerobic Blood Culture - Final Blood - Arm, Left Med Orders - Current: Current Medications Acetaminophen (Tylenol) 650 mg PO Q4H PRN PRN Reason: Pain (Mild 1-3)/fever Dexamethasone (Decadron) 6 mg IVPUSH BEDTIME [facility] Enoxaparin Sodium (Lovenox) 30 mg SUBCUT Q12HR [facility] Last Admin: 07/11/20 09:12 Dose: 30 mg Documented by: Sodium Chloride (Normal Saline) 1,000 mls @ 75 mls/hr IV ASDIRECTED [facility] Last Admin: 07/11/20 04:40 Dose: 75 mls/hr Documented by: Ondansetron HCl (Zofran) 4 mg IVPUSH Q6H PRN PRN Reason: Nausea/Vomiting Discontinued Medications Dexamethasone (Decadron) 6 mg IVPUSH ONETIME ONE Stop: 07/11/20 01:20 Last Admin: 07/11/20 01:24 Dose: 6 mg Documented by: Potassium Chloride 20 meq/ (Premix) 100 mls @ 50 mls/hr IV ONETIME ONE Stop: 07/11/20 06:57 Last Infusion: 07/11/20 07:10 Dose: Infused Documented by: - Exam Quality Assessment: Supplemental Oxygen, DVT Prophylaxis. No: Urine Catheter, Skin Breakdown General: Alert, Oriented, Cooperative, No Acute Distress HEENT: Pupils Equal, Pupils Reactive, EOMI Neck: Supple, No JVD, No Thyromegaly Lungs: Clear to Auscultation, Normal Respiratory Effort, Decreased Breath Sounds. No: Wheezing Cardiovascular: Regular Rate, Regular Rhythm, Murmurs GI/Abdominal Exam: Normal Bowel Sounds, Soft, Non-Tender, No Organomegaly. No: Guarding, Rigid, Rebound (Female) Exam: Deferred Back Exam: Normal Inspection Extremities: Normal Inspection, No Pedal Edema Skin: Warm, Dry, Intact Neurological: No New Focal Deficit Psy/Mental Status: Alert, Normal Affect, Normal Mood Sepsis Event Note - Evaluation Sepsis Screening Result: No Definite Risk - Focused Exam Vital Signs: Vital Signs Temp Pulse Resp BP BP Pulse Ox 07/11/20 08:00 37.1 C 73 18 104/60 95 07/11/20 03:05 37.0 C 105 H 22 H 117/52 L 121/95 H 97 - Problem List Review Problem List Initiated/Reviewed/Updated: Yes - Plan Plan:: This a 65-year-old female with medical history of hypertension, diabetes mellitus, gastroesophageal reflux disease. The patient presented to the emergency room with complaint of shortness of breath. She was diagnosed with Covid on 07/02/2020. She has continued to cough and the shortness of breath is getting worse. At presentation she was hypoxic saturation down to 70%. She was placed on supplemental oxygen 4 L/min. CT scan of the chest showed findings consistent with Covid pneumonia Assessment/plan: 1. COVID-[address] scan demonstrated bilateral pulmonary infiltrate -Will continue dexamethasone x 10 days course and she is outside the window for intravenous remdesivir and Also outside window for intravenous convalescent plasma -Will check Procalcitonin and if high then will start Ceftriaxone and Azithromycin 2. Acute hypoxemic respiratory failure Secondary to COVID-19 pneumonia and continue the treatment as in #1 3. Diabetes mellitus type 2 On oral hypoglycemic agents 4. Hypokalemia: Serum potassium is down to 3.0 and has received replacement and will recheck potassium 5. Hypertension: continue hydrochlorothiazide and losartan DVT prophylaxis: She is on Enoxaparin
[2020-07-11] MEDS: Dexamethasone 4 MG/ML SDV IVPUSH SCH (20:57)
[2020-07-11] MEDS: guaiFENesin 100 MG/5 ML Soln 5 ML UD Cup PO PRN (23:17)
[2020-07-12] MEDS: guaiFENesin 100 MG/5 ML Soln 5 ML UD Cup PO PRN ×3 (05:11→21:37)
[2020-07-12] MEDS: Acetaminophen 325 MG Tab PO PRN ×2 (05:11→21:37)
[2020-07-12] MEDS: Sodium Chloride 0.9% 1,000 ML IV SCH ×2 (05:48→20:27)
[2020-07-12] MEDS: Enoxaparin 30 MG/0.3 ML Syringe SUBCUT SCH ×2 (08:16→20:02)
--- NOTE | 2020-07-12 11:46 | PCM.PN ---
- General Info Date of Service: 07/12/20 Admission Dx/Problem (Free Text): Admission Diagnosis/Problem Admission Diagnosis/Problem Bilateral pneumonia Subjective Update: Pt was seen in room doing well, No nausea or Vomiting and she is still on supplemental oxygen, her appetite is good Functional Status: Reports: Pain Controlled, Tolerating Diet, Ambulating, Urinating - Review of Systems General: Reports: Weakness, Malaise, Appetite (acceptable). Denies: Fever, Chills HEENT: Denies: Headaches, Sinus Congestion, Sore Throat, Visual Changes Pulmonary: Reports: Shortness of Breath, Cough. Denies: Sputum, Wheezing Cardiovascular: Denies: Chest Pain, Dyspnea on Exertion, Lightheadedness Gastrointestinal: Denies: Abdominal Pain, Decreased Appetite, Nausea, Vomiting Genitourinary: Denies: Dysuria, Frequency, Burning Musculoskeletal: Denies: Neck Pain Skin: Denies: Cyanosis, Jaundice, Bruising, Pruritis, Rash Psychiatric: Denies: Confusion - Patient Data Vitals - Most Recent: Last Vital Signs Temp 36.9 C 07/12/20 08:00 Pulse 71 07/12/20 08:00 Resp 21 H 07/12/20 08:00 BP 132/70 07/12/20 08:00 Pulse Ox 95 07/12/20 08:00 Weight - Most Recent: 81.221 kg I&O - Last 24 Hours: Intake & Output 07/11/20 07/12/20 07/12/20 22:59 06:59 14:59 Intake Total 1270 240 Balance 1270 240 Lab Results Last 24 Hours: Laboratory Results - last 24 hr 07/11/20 07/11/20 07/11/20 Range/Units 06:15 11:47 16:51 POC Glucose 119 H 99 (70-105) mg/dl Procalcitonin 0.28 H ng/mL 07/12/20 Range/Units 08:07 POC Glucose 142 H (70-105) mg/dl Procalcitonin ng/mL [place] Results Last 24 Hours: Microbiology 07/11/20 00:30 Aerobic Blood Culture - Preliminary Blood - Arm, Left NO GROWTH AFTER 1 DAY Anaerobic Blood Culture - Final Med Orders - Current: Current Medications Acetaminophen (Tylenol) 650 mg PO Q4H PRN PRN Reason: Pain (Mild 1-3)/fever Last Admin: 07/12/20 05:11 Dose: 650 mg Documented by: Dexamethasone (Decadron) 6 mg IVPUSH BEDTIME [facility] Last Admin: 07/11/20 20:57 Dose: 6 mg Documented by: Enoxaparin Sodium (Lovenox) 30 mg SUBCUT Q12HR [facility] Last Admin: 07/12/20 08:16 Dose: 30 mg Documented by: Guaifenesin (Robitussin) 100 mg PO Q6H PRN PRN Reason: Cough Last Admin: 07/12/20 05:11 Dose: 100 mg Documented by: Sodium Chloride (Normal Saline) 1,000 mls @ 75 mls/hr IV ASDIRECTED [facility] Last Admin: 07/12/20 05:48 Dose: 75 mls/hr Documented by: Ondansetron HCl (Zofran) 4 mg IVPUSH Q6H PRN PRN Reason: Nausea/Vomiting Discontinued Medications Dexamethasone (Decadron) 6 mg IVPUSH ONETIME ONE Stop: 07/11/20 01:20 Last Admin: 07/11/20 01:24 Dose: 6 mg Documented by: Potassium Chloride 20 meq/ (Premix) 100 mls @ 50 mls/hr IV ONETIME ONE Stop: 07/11/20 06:57 Last Infusion: 07/11/20 07:10 Dose: Infused Documented by: - Exam Quality Assessment: Supplemental Oxygen, DVT Prophylaxis. No: Urine Catheter General: Alert, Oriented, Cooperative HEENT: Pupils Equal, Pupils Reactive, EOMI, Mucous Membr. Moist/[place] Neck: Supple, No JVD, No Thyromegaly Lungs: Clear to Auscultation, Normal Respiratory Effort, Decreased Breath Sounds. No: Crackles, Wheezing Cardiovascular: Regular Rate, Regular Rhythm, No Murmurs GI/Abdominal Exam: Normal Bowel Sounds. No: Guarding, Rigid, Rebound (Female) Exam: Deferred Back Exam: Normal Inspection, Full Range of Motion Extremities: Normal Inspection, No Pedal Edema Skin: Warm, Dry, Intact Neurological: No New Focal Deficit Psy/Mental Status: Alert, Normal Affect, Normal Mood Sepsis Event Note - Evaluation Sepsis Screening Result: No Definite Risk - Focused Exam Vital Signs: Vital Signs Temp Pulse Resp BP Pulse Ox Pulse Ox 07/12/20 08:00 36.9 C 71 21 H 132/70 95 07/12/20 02:14 90 L 07/12/20 02:05 87 L - Problem List Review Problem List Initiated/Reviewed/Updated: Yes - My Orders Last 24 Hours: My Active Orders 07/11/20 22:24 guaiFENesin [Robitussin] 100 mg PO Q6H PRN - Plan Plan:: This a 65-year-old female with medical history of hypertension, diabetes mellitus, gastroesophageal reflux disease. The patient presented to the emergency room with complaint of shortness of breath. She was diagnosed with Covid on 07/02/2020. She has continued to cough and the shortness of breath is getting worse. At presentation she was hypoxic saturation down to 70%. She was placed on supplemental oxygen 4 L/min. CT scan of the chest showed findings consistent with Covid pneumonia Assessment/plan: 1. COVID-[address] scan demonstrated bilateral pulmonary infiltrate -Will continue dexamethasone x 10 days course and she is outside the window for intravenous remdesivir and Also outside window for intravenous convalescent plasma - Procalcitonin is high will start Ceftriaxone and Azithromycin 2. Acute hypoxemic respiratory failure Secondary to COVID-19 pneumonia and continue the treatment as in #1 3. Diabetes mellitus type 2 On oral hypoglycemic agents 4. Hypokalemia: Serum potassium is down to 3.0 and has received replacement and will recheck potassium 5. Hypertension: continue hydrochlorothiazide and losartan DVT prophylaxis: She is on Enoxaparin
[2020-07-12] MEDS ORDERED: cefTRIAXone 2 GM in Sodium Chloride 0.9% 100 ML IV SCH (12:30)
[2020-07-12] MEDS ORDERED: Azithromycin 500 MG in Sodium Chloride 0.9% 250 ML IV SCH (13:00)
[2020-07-12] MEDS ORDERED: Mometasone Furoate Powder 220 MCG/Puff 14 Dose Inhaler INH SCH (15:30)
[2020-07-12] MEDS: Albuterol 6.7 GM Inhaler INH SCH ×3 (15:41→20:03)
[2020-07-12] MEDS: Benzonatate 100 MG Cap PO PRN ×2 (18:36→23:42)
[2020-07-12] MEDS: Dexamethasone 4 MG/ML SDV IVPUSH SCH (20:03)
[2020-07-12] MEDS ORDERED: LORazepam 2 MG/ML SDV IVPUSH STA (23:58)
[2020-07-13] MEDS: guaiFENesin 100 MG/5 ML Soln 5 ML UD Cup PO PRN (03:09)
[2020-07-13] MEDS ORDERED: LORazepam 2 MG/ML SDV IVPUSH STA (03:30)
--- NOTE | 2020-07-13 06:24 | PCM.DCSUM1 ---
Discharge Summary - Hospital Course Free Text/Narrative:: This a 65-year-old female with medical history of hypertension, diabetes mellitus, gastroesophageal reflux disease. The patient presented to the emergency room with complaint of shortness of breath. She was diagnosed with Covid on 07/02/2020. She has continued to cough and the shortness of breath is getting worse. At presentation she was hypoxic saturation down to 70%. She was placed on supplemental oxygen 4 L/min. CT scan of the chest showed findings consistent with Covid pneumonia and D-Dimer on 12/09 was 521. Since she was outside the window for Remdesivir and Convalescent plasma and did not receive after admission. She was placed on Dexamethasone and Azithromycin and Ceftriaxone. For the last 8-10 hrs her oxygen saturation is deteriorating and she is now on 60 L/100% oxygen and she is also getting disoriented and taking off her oxygen. There is no sitter available in this hospital and since her status deteriorating very rapidly discussed with pt and family about the transfer to a facility for higher level of Care. I have discussed with Critical care Physician Dr. Flores and he acceptable the pt for further care. - Discharge Data Discharge Date: 07/13/20 Discharge Disposition: DC/Tfer to Acute Hospital 02 Condition: Fair - Referral to Home Health Primary Care Physician: Ly Eric NP - Patient Instructions Diet: Diabetic Diet Activity: Bedrest Driving: Do Not Drive Showering/Bathing: No Showering - Discharge Plan Oxygen Therapy Mode: High Humidity, High Flow Therapy Oxygen Flow Rate (L/min): 60 FiO2: 100 Maintain SPO2% less than: 85 Forms: ED Department Discharge Referrals: Ly Eric NP [Primary Care Provider] - - Discharge Summary/Plan Comment DC Time >30 min.: Yes Discharge Summary/Plan Comment: This a 65-year-old female with medical history of hypertension, diabetes mellitus, gastroesophageal reflux disease. The patient presented to the emergency room with complaint of shortness of breath. She was diagnosed with Covid on 07/02/2020. She has continued to cough and the shortness of breath is getting worse. At presentation she was hypoxic saturation down to 70%. She was placed on supplemental oxygen 4 L/min. CT scan of the chest showed findings consistent with Covid pneumonia. Her status is deteriorating and will be transferred to [facility] for higher level of care Assessment/plan: 1. COVID-19 pneumonia - CT scan demonstrated bilateral pulmonary infiltrate -Will continue dexamethasone x 10 days course and she is outside the window for intravenous remdesivir and Also outside window for intravenous convalescent plasma - Procalcitonin is high and she is on Ceftriaxone and Azithromycin 2. Acute hypoxemic respiratory failure Secondary to COVID-19 pneumonia and continue the treatment as in #1 3. Diabetes mellitus type 2: On oral hypoglycemic agents 4. Hypokalemia: Serum potassium wass down to 3.0 and has received replacement and recheck potassium is acceptable 5. Hypertension: continue hydrochlorothiazide and losartan DVT prophylaxis: She is on Enoxaparin - General Info Date of Service: 07/13/20 Admission Dx/Problem (Free Text: Admission Diagnosis/Problem Admission Diagnosis/Problem Bilateral pneumonia Subjective Update: Pt was seen in room, not doing well, No nausea or Vomiting and she is still on high flow oxygen but saturation is deteriorating and will be transferred to [facility] Via air ambulance Functional Status: Reports: Pain Controlled, Ambulating (with assistance), Urinating - Review of Systems General: Reports: Weakness, Appetite (not good). Denies: Fever, Chills HEENT: Denies: Headaches, Sinus Congestion, Sore Throat, Visual Changes Pulmonary: Reports: Shortness of Breath, Cough. Denies: Sputum, Wheezing Cardiovascular: Reports: Dyspnea on Exertion. Denies: Chest Pain, Edema, Lightheadedness Gastrointestinal: Denies: Abdominal Pain, Decreased Appetite, Difficulty Swall owing, Nausea, Vomiting Genitourinary: Denies: Dysuria, Burning, Urgency Musculoskeletal: Denies: Neck Pain, Shoulder Pain, Joint Swelling Skin: Denies: Cyanosis, Jaundice, Dryness, Bruising, Pruritis Neurological: Reports: Confusion (mild). Denies: Numbness, Tremors Psychiatric: Reports: Confusion (mild), Anxiety, Agitation - Patient Data Vitals - Most Recent: Last Vital Signs Temp 36.1 C 07/13/20 03:09 Pulse 90 07/13/20 03:09 Resp 32 H 07/13/20 03:09 BP 116/72 07/12/20 19:45 Pulse Ox 90 L 07/13/20 03:09 Weight - Most Recent: 81.221 kg I&O - Last 24 hours: Intake & Output 07/12/20 07/12/20 07/13/20 14:59 22:59 06:59 Intake Total 240 600 Balance 240 600 Lab Results - Last 24 hrs: Laboratory Results - last 24 hr 07/12/20 07/12/20 07/12/20 Range/Units 08:07 12:04 17:08 POC Glucose 142 H 105 107 H (70-105) mg/dl GOKUL Results - Last 24 hrs: Microbiology 07/11/20 00:30 Aerobic Blood Culture - Preliminary Blood - Arm, Left NO GROWTH AFTER 2 DAYS Anaerobic Blood Culture - Final Med Orders - Current: Current Medications Acetaminophen (Tylenol) 650 mg PO Q4H PRN PRN Reason: Pain (Mild 1-3)/fever Last Admin: 07/12/20 21:37 Dose: 650 mg Documented by: Albuterol (Proventil Hfa) 0 gm INH QID [facility] Last Admin: 07/12/20 20:03 Dose: 2 puff Documented by: Benzonatate (Tessalon Perles) 100 mg PO QID PRN PRN Reason: Cough Last Admin: 07/12/20 23:42 Dose: 100 mg Documented by: Dexamethasone (Decadron) 6 mg IVPUSH BEDTIME [facility] Last Admin: 07/12/20 20:03 Dose: 6 mg Documented by: Enoxaparin Sodium (Lovenox) 30 mg SUBCUT Q12HR [facility] Last Admin: 07/12/20 20:02 Dose: 30 mg Documented by: Guaifenesin (Robitussin) 100 mg PO Q6H PRN PRN Reason: Cough Last Admin: 07/13/20 03:09 Dose: 100 mg Documented by: Sodium Chloride (Normal Saline) 1,000 mls @ 75 mls/hr IV ASDIRECTED [facility] Last Admin: 07/12/20 20:27 Dose: 75 mls/hr Documented by: Azithromycin 500 mg/ Sodium (Chloride) 250 mls @ 250 mls/hr IV Q24H [facility] Last Admin: 07/12/20 15:03 Dose: 250 mls/hr Documented by: Ceftriaxone Sodium 2 gm/ (Sodium Chloride) 100 mls @ 200 mls/hr IV Q24H [facility] Last Admin: 07/12/20 13:49 Dose: 200 mls/hr Documented by: Mometasone Furoate (Asmanex 220 Mcg) 1 puff INH DAILY [facility] Last Admin: 07/12/20 15:41 Dose: 1 puff Documented by: Ondansetron HCl (Zofran) 4 mg IVPUSH Q6H PRN PRN Reason: Nausea/Vomiting Discontinued Medications Dexamethasone (Decadron) 6 mg IVPUSH ONETIME ONE Stop: 07/11/20 01:20 Last Admin: 07/11/20 01:24 Dose: 6 mg Documented by: Potassium Chloride 20 meq/ (Premix) 100 mls @ 50 mls/hr IV ONETIME ONE Stop: 07/11/20 06:57 Last Infusion: 07/11/20 07:10 Dose: Infused Documented by: Lorazepam (Ativan) 1 mg IVPUSH ONETIME STA Stop: 07/12/20 23:59 Last Admin: 07/13/20 00:05 Dose: 1 mg Documented by: Lorazepam (Ativan) 1 mg IVPUSH ONETIME STA Stop: 07/13/20 03:31 Last Admin: 07/13/20 03:36 Dose: 1 mg Documented by: - Exam Quality Assessment: Reports: Supplemental Oxygen, DVT Prophylaxis. Denies: Urin e Catheter General: Reports: Alert, Oriented, Cooperative, Mild Distress HEENT: Reports: Pupils Equal, Pupils Reactive, Mucous Membr. Moist/[place] Neck: Reports: Supple, No JVD, No Thyromegaly Lungs: Reports: Clear to Auscultation, Normal Respiratory Effort, Decreased Breath Sounds. Denies: Crackles, Wheezing Cardiovascular: Reports: Regular Rate, Regular Rhythm, No Murmurs GI/Abdominal Exam: Normal Bowel Sounds. No: Guarding, Rigid, Rebound (Female) Exam: Deferred Back Exam: Reports: Normal Inspection Extremities: Normal Inspection, No Pedal Edema Skin: Reports: Warm, Dry, Intact Neurological: Reports: No New Focal Deficit Psy/Mental Status: Reports: Alert, Normal Affect, Normal Mood, Anxious
[2020-07-13 06:30] VITALS: BP 118/68; PULSE 91
--- NOTE | 2020-07-13 07:51 | CR ---
PROCEDURE INFORMATION: Exam: XR Chest, 1 View Exam date and time: 07/13/2020 7:41 AM Age: 65 years old Clinical indication: Other: Post intubation; Additional info: Postintubation TECHNIQUE: Imaging protocol: XR of the chest Views: 1 view. COMPARISON: CT Chest wo Cont, Chest wo Cont 07/11/2020 1:00 AM FINDINGS: Tubes, catheters and devices: The tip of an endotracheal tube is approximately 5.1 cm above the zuleika. Lungs: Extensive ground-glass airspace disease throughout the lung macario bilaterally. Pleural space: Unremarkable. No pleural effusion. No pneumothorax. Heart/Mediastinum: The heart is enlarged. Bones/joints: Unremarkable. Organs: Surgical clips are noted in the right upper quadrant most likely due to prior cholecystectomy. IMPRESSION: 1. Extensive ground-glass airspace disease throughout the lung macario bilaterally. 2. No significant change from the previous examination.
== END 2020-07-13 08:04 | DRG 177 ==
LOC: DL.ED 22:48 → DL.MS 07-11 02:18
PROVIDERS: ADMIT Hospitalist; ATTEND Internal Medicine Nephrology
PROC: XW033F5 Introduction of Other New Technology Therapeutic Substance into Peripheral Vein, Percutaneous Approach, New Technology Group 5 (ICD-10-PCS; principal; 2020-07-10)
DX: U07.1 COVID-19 (principal); J12.89 Other viral pneumonia; J96.01 Acute respiratory failure with hypoxia; I10 Essential (primary) hypertension; E11.9 Type 2 diabetes mellitus without complications; Z79.4 Long term (current) use of insulin; K21.9 Gastro-esophageal reflux disease without esophagitis; E87.6 Hypokalemia; E78.5 Hyperlipidemia, unspecified; M85.80 Other specified disorders of bone density and structure, unspecified site; Z90.49 Acquired absence of other specified parts of digestive tract; E66.9 Obesity, unspecified; J45.909 Unspecified asthma, uncomplicated; R09.02 Hypoxemia
CPT/HCPCS: 36415; 71250; 80053; 82150; 83605; 83690; 84484; 85025; 85379; 87040; 93005; J1100; 71045; 80048; 80076; 82962; 84145; 93010; 94660; 99283; A9270-GY; J0456; J0696; J1650; J2060; J3480; J7030; J7050

== ENCOUNTER 2022-06-30 10:27 | Emergency (ER) | payer MEDICARE, OTHER ==
[2022-06-30 11:29] VITALS: BP 140/106; PULSE 98
[2022-06-30] MEDS ORDERED: Albuterol/Ipratropium 3.0-0.5 MG/3 ML Neb Soln NEB ONE (11:43)
[2022-06-30 12:14] LABS: RESPIRATORY SYNCYTIAL VIR NAA NEGATIVE (NEGATIVE)
[2022-06-30 12:41] LABS: CORONAVIRUS COVID-19 NAA POSITIVE (NEGATIVE)
== END 2022-06-30 13:04 | disposition home or self-care (01) ==
LOC: DL.ED 10:27
DX: U07.1 COVID-19 (principal); E78.00 Pure hypercholesterolemia, unspecified; I10 Essential (primary) hypertension; K21.9 Gastro-esophageal reflux disease without esophagitis; E11.9 Type 2 diabetes mellitus without complications; E66.9 Obesity, unspecified; Z68.37 Body mass index [BMI] 37.0-37.9, adult; Z88.1 Allergy status to other antibiotic agents; Z88.8 Allergy status to other drugs, medicaments and biological substances; Z79.84 Long term (current) use of oral hypoglycemic drugs; Z79.899 Other long term (current) drug therapy
CPT/HCPCS: 0241U; 71045; 99284; J7620-GY

== ENCOUNTER 2023-03-31 06:10 | Day surgery (SDC) | payer MEDICARE, OTHER ==
[2023-03-31] MEDS ORDERED: Dextrose 5%-0.45% NaCl 1,000 ML IV SCH (06:30)
[2023-03-31] MEDS ORDERED: Midazolam 1 MG/ML 2 ML SDV ONE (07:00)
[2023-03-31] MEDS ORDERED: Midazolam 1 MG/ML 2 ML SDV IV ONE ×3 (07:00→07:35)
[2023-03-31] MEDS ORDERED: fentaNYL 100 MCG/2 ML SDV ONE (07:00)
[2023-03-31] MEDS ORDERED: fentaNYL 100 MCG/2 ML SDV IV ONE ×3 (07:00→07:34)
[2023-03-31 12:01] VITALS: BP 144/78; PULSE 68
== END 2023-03-31 09:45 | disposition home or self-care (01) ==
LOC: DL.ENDO 06:10
PROVIDERS: ATTEND Internal Medicine Gastroenterology
DX: R13.10 Dysphagia, unspecified (principal); K22.89 Other specified disease of esophagus; K29.50 Unspecified chronic gastritis without bleeding; E11.9 Type 2 diabetes mellitus without complications; I10 Essential (primary) hypertension; E78.5 Hyperlipidemia, unspecified; K21.9 Gastro-esophageal reflux disease without esophagitis; E66.09 Other obesity due to excess calories; Z68.35 Body mass index [BMI] 35.0-35.9, adult; Z88.8 Allergy status to other drugs, medicaments and biological substances; Z88.1 Allergy status to other antibiotic agents
CPT/HCPCS: 87077; 88305; J2250; J3010; J7042

== ENCOUNTER 2023-05-02 22:20 | Emergency (ER) | payer MEDICARE, OTHER ==
[2023-05-02] MEDS ORDERED: Albuterol 6.7 GM Inhaler INH ONE (22:59)
[2023-05-03 00:16] VITALS: BP 147/93; PULSE 91
== END 2023-05-02 23:15 | disposition home or self-care (01) ==
LOC: DL.ED 22:20
DX: U07.1 COVID-19 (principal); I10 Essential (primary) hypertension; E78.00 Pure hypercholesterolemia, unspecified; E11.9 Type 2 diabetes mellitus without complications; E66.9 Obesity, unspecified; Z68.30 Body mass index [BMI] 30.0-30.9, adult; Z86.16 Personal history of COVID-19; Z88.8 Allergy status to other drugs, medicaments and biological substances; Z88.1 Allergy status to other antibiotic agents; Z79.84 Long term (current) use of oral hypoglycemic drugs; Z79.899 Other long term (current) drug therapy
CPT/HCPCS: 99283; A9270

== ENCOUNTER 2024-08-23 06:47 | Day surgery (SDC) | payer MEDICARE, OTHER ==
[~2024-08-23 06:47] MED LIST changes: -Dextrose 5%-0.45% NaCl 1,000 ML IV SCH; -Sodium Chloride 0.9% 10 ML Syringe FLUSH PRN
[2024-08-23] MEDS: Dextrose 5%-0.45% NaCl 1,000 ML IV SCH (07:12)
[2024-08-23] MEDS: fentaNYL 100 MCG/2 ML SDV IV ONE ×2 (07:29→07:30)
[2024-08-23] MEDS: Midazolam 1 MG/ML 2 ML SDV IV ONE ×5 (07:30→07:44)
[2024-08-23 08:02] VITALS: BP 86/46; PULSE 79
== END 2024-08-23 09:20 | disposition home or self-care (01) ==
LOC: DL.ENDO 06:47
PROVIDERS: ATTEND Internal Medicine Gastroenterology
DX: D12.0 Benign neoplasm of cecum (principal); D12.2 Benign neoplasm of ascending colon; K57.30 Diverticulosis of large intestine without perforation or abscess without bleeding; K59.09 Other constipation
CPT/HCPCS: 45385; 88305; J2250; J3010; J7799